=== PATIENT | male | born 1950 | race Two or more races ===

== ENCOUNTER 2024-06-12 07:12 | Outpatient (CLI) | payer OTHER | END 2024-06-12 07:16 | disposition home or self-care (01) | LOC: NUCLEAR 07:12 | PROVIDERS: ATTEND Internal Medicine Endocrinology, Diabetes & Metabolism | DX: E21.0 Primary hyperparathyroidism (principal) ==

== ENCOUNTER 2024-10-04 07:06 | Outpatient (CLI) | payer OTHER | END 2024-10-04 07:07 | disposition home or self-care (01) | LOC: NUCLEAR 07:06 | PROVIDERS: ATTEND Internal Medicine Endocrinology, Diabetes & Metabolism | DX: E21.0 Primary hyperparathyroidism (principal) ==